=== PATIENT | female | born 1990 | race Two or more races ===

== ENCOUNTER 2019-07-23 12:28 | Inpatient (IN) | payer SELFPAY ==
[~2019-07-23] VITALS: Ht 167.6 cm; Wt 78.7 kg
[2019-07-23 14:09] LABS: Basophils # (auto) 0 uL; Eosinophils # (auto) 0 uL; Eosinophils % (auto) 0.2 % (0.0-7.0); Lymphocytes # (auto) 0.9 uL; Monocytes # (auto) 0.5 uL; Neutrophils # (auto) 7.4 uL
[2019-07-23 14:11] LABS: Basophils % (auto) 0.2 % (0.0-2.0); Hematocrit 33.5 % (36.0-46.0); Hemoglobin 10.9 g/dL (12.2-16.2); Lymphocytes % (auto) 9.8 % (10.0-50.0); Mean Corpuscular Hemoglobin 24.6 pg (28.0-32.0); Mean Corpuscular Hgb Conc. 32.4 g/dL (32.0-36.0); Mean Corpuscular Volume 75.9 fL (80.0-100.0); Monocytes % (auto) 6.1 % (0.0-12.0); Neutrophils % (auto) 83.7 % (37.0-80.0); Platelet Count (auto) 304 10^3/uL (140-450); Red Blood Cells 4.42 10^6/uL (4.0-5.20); Red Cell Distribution Width 16.7 % (11.8-14.3); White Blood Cell 8.8 10^3/uL (4.4-10.8)
[2019-07-23 14:25] LABS: Urine Bacteria NONE SEEN /hpf (None Seen); Urine Blood Negative /uL (Negative); Urine Mucus FEW (None Seen); Urine WBC 70 /hpf (0 - 5)
[2019-07-23 14:26] LABS: BUN/Creatinine Ratio 18.3; Calcium 8.6 mg/dL (8.5-10.1); Potassium 3.6 mmol/L (3.5-5.1)
[2019-07-23 14:28] LABS: Bilirubin, Total 0.7 mg/dL (0.2-1.0); Total Protein 7.7 g/dL (6.4-8.2)
[2019-07-23] MEDS ORDERED: ONDANSETRON HCL 4 MG/2 ML VIAL IV ONE (14:45)
[2019-07-23] MEDS ORDERED: MORPHINE SULFATE 4 MG/ML SYR/VIAL IV ONE (14:45)
[2019-07-23] MEDS ORDERED: SODIUM CHLORIDE 0.9% 1,000 ML IV ONE (14:45)
[2019-07-23] MEDS ORDERED: PIPERACILLIN-TAZOB 3.375GM 100 ML IV ONE (15:00)
[2019-07-23] MEDS ORDERED: MORPHINE SULFATE 4 MG/ML SYR/VIAL IV PRN (15:45)
[2019-07-23] MEDS: SODIUM CHLORIDE 0.9% 1,000 ML IV SCH ×2 (15:57→18:14)
[2019-07-23] MEDS ORDERED: cefTRIAXone 1GM/50ML D5W 50 ML IV ONE (16:00)
[2019-07-23] MEDS: FAMOTIDINE (10MG/ML) 2ML VL IV SCH ×2 (16:10→20:21)
[2019-07-23 17:00] VITALS: BP 107/70
[2019-07-23 17:24] VITALS: BP 107/70
[2019-07-23] MEDS: MORPHINE SULFATE 4 MG/ML SYR/VIAL IV PRN ×2 (18:06→22:27)
[2019-07-23] MEDS: PROMETHAZINE HCL 25 MG/ML 1ML IV PRN (20:21)
[2019-07-23] MEDS: metroNIDAZOLE 500MG/100ML 100 ML IV SCH (20:21)
[2019-07-23 22:00] VITALS: BP 111/66
[2019-07-24 05:00] VITALS: BP 102/72
[2019-07-24] MEDS: SODIUM CHLORIDE 0.9% 1,000 ML IV SCH ×2 (05:39→21:31)
[2019-07-24] MEDS: metroNIDAZOLE 500MG/100ML 100 ML IV SCH (05:39)
[2019-07-24] MEDS ORDERED: LIDOCAINE 2%HCL (LOCAL ANESTH.) INJ 20ML MDV ONE (07:11)
[2019-07-24 07:38] LABS: Eosinophils # (auto) 0 uL; Hematocrit 32.7 % (36.0-46.0); Hemoglobin 10.5 g/dL (12.2-16.2); Red Cell Distribution Width 16.5 % (11.8-14.3)
[2019-07-24 07:42] LABS: Basophils # (auto) 0 uL; Basophils % (auto) 0.3 % (0.0-2.0); Eosinophils % (auto) 0.5 % (0.0-7.0); Lymphocytes # (auto) 1.1 uL; Mean Corpuscular Hemoglobin 24.1 pg (28.0-32.0); Mean Corpuscular Volume 75.3 fL (80.0-100.0); Monocytes % (auto) 11.2 % (0.0-12.0); Neutrophils # (auto) 6.5 uL; Platelet Count (auto) 294 10^3/uL (140-450); Red Blood Cells 4.35 10^6/uL (4.0-5.20); White Blood Cell 8.6 10^3/uL (4.4-10.8)
[2019-07-24 07:57] LABS: Albumin 3.4 g/dL (3.4-5.0); BUN/Creatinine Ratio 14.5; Calcium 8.6 mg/dL (8.5-10.1); Potassium 3.7 mmol/L (3.5-5.1)
[2019-07-24 08:00] LABS: Total Protein 6.9 g/dL (6.4-8.2)
[2019-07-24 08:09] VITALS: BP 102/68
[2019-07-24 09:00] VITALS: BP 102/68
[2019-07-24] MEDS ORDERED: cefTRIAXone 1GM/50ML D5W 50 ML IV SCH (09:00)
[2019-07-24] MEDS: ENOXAPARIN SOD 40 MG/0.4 ML SYRINGE SC SCH (09:06)
[2019-07-24 10:23] LABS: INR 1.06 (0.9-1.15)
[2019-07-24 13:00] VITALS: BP 104/67
[2019-07-24] MEDS: PIPERACILLIN-TAZOB 3.375GM 100 ML IV SCH ×3 (13:04→23:40)
--- NOTE | 2019-07-24 13:30 | NUR ---
DR. ESCALERA ADVISED ME TO REFER PATIENT TO THE [facility] FOR A ERCP. DR. ESCALERA IS REFERING THE PATIENT FOR A CVD STONE
[2019-07-24 17:00] VITALS: BP 105/70
[2019-07-24] MEDS: FAMOTIDINE (10MG/ML) 2ML VL IV SCH (17:31)
--- NOTE | 2019-07-24 20:00 | NUR ---
INFORMED PATIENT AND FAMILY PLAN OF CARE, AND THAT SHE HAS SURGICAL AND GI CONSULT AND STUDY MRCP. PATIENT AND MOTHER VERBALIZES UNDERSTANDING NO QUESTIONS ASKED.
[2019-07-24 22:00] VITALS: BP 118/67
[2019-07-25] MEDS: FAMOTIDINE (10MG/ML) 2ML VL IV SCH ×2 (03:31→17:51)
--- NOTE | 2019-07-25 03:43 | NUR ---
PAIN/NAUSEA PATIENT C/O 8/10 ABDOMINAL PAIN AND NAUSEA REQUESTING MEDICATIONS. ADMINISTERED MORPHINE 2MG IV AND PHENERGAN 12.5MG IV PRESCRIBED. WILL CONTINUE TO MONTIOR PATIENT.
[2019-07-25] MEDS: MORPHINE SULFATE 4 MG/ML SYR/VIAL IV PRN ×2 (03:45→23:44)
[2019-07-25] MEDS: PROMETHAZINE HCL 25 MG/ML 1ML IV PRN ×2 (03:46→23:44)
[2019-07-25] MEDS: PIPERACILLIN-TAZOB 3.375GM 100 ML IV SCH ×4 (05:45→23:30)
--- NOTE | 2019-07-25 06:08 | NUR ---
PATIENT EDUCATION PRINTED WRITTEN INSTRUCTIONS REGARDING ERCP GIVEN TO PATIENT WHEN SHES AWAKE. WILL CONTINUE TO MONITOR PATIENT.
[2019-07-25 06:11] VITALS: BP 100/56
[2019-07-25 08:00] VITALS: BP 97/53
[2019-07-25 09:00] VITALS: BP 97/53
[2019-07-25] MEDS: ENOXAPARIN SOD 40 MG/0.4 ML SYRINGE SC SCH (10:43)
[2019-07-25] MEDS: SODIUM CHLORIDE 0.9% 1,000 ML IV SCH ×2 (10:44→17:51)
[2019-07-25] MEDS ORDERED: IOHEXOL 300 MG/ML 100ML BOTTLE IJ ONE (11:18)
--- NOTE | 2019-07-25 11:43 | NUR ---
PATIENT TRANSPORTED TO SURGERY FOR ERCP. ALL CONSENTS SIGNED AND PREOP CHECKLIST STARTED.
[2019-07-25] MEDS ORDERED: MEPERIDINE HCL (25 MG/ML) 1ML VIAL ONE (12:04)
[2019-07-25] MEDS ORDERED: MIDAZOLAM HCL 1MG/1ML-2 ML VIAL ONE (12:05)
[2019-07-25] MEDS ORDERED: fentaNYL CITRATE 100 MCG/2 ML VL ONE (12:05)
[2019-07-25] MEDS ORDERED: PROPOFOL 10 MG/ML 20 ML IV ONE (12:23)
[2019-07-25] MEDS ORDERED: DexAMETHasone SOD PHOS 10MG/1ML VIAL INJ ONE (12:23)
[2019-07-25 13:00] VITALS: BP 97/57
[2019-07-25] MEDS ORDERED: HYDROmorphone HCL 2 MG/ML VL IV PRN (13:00)
[2019-07-25] MEDS ORDERED: METOCLOPRAMIDE HCL 5MG/ml INJ 2ml VIAL IV PRN (13:00)
[2019-07-25] MEDS ORDERED: KETOROLAC TROMETH 30 MG/ML 1ML VIAL IV ONE (13:00)
[2019-07-25] MEDS ORDERED: MORPHINE SULFATE 4 MG/ML SYR/VIAL IV PRN (13:00)
[2019-07-25] MEDS ORDERED: MIDAZOLAM HCL 1MG/1ML-2 ML VIAL IV PRN (13:00)
[2019-07-25] MEDS ORDERED: ONDANSETRON HCL 4 MG/2 ML VIAL IV PRN (13:00)
[2019-07-25] MEDS ORDERED: LABETALOL HCL 5 MG/ML 4ML SYRINGE IV PRN (13:00)
[2019-07-25] MEDS ORDERED: ePHEDrine SULFATE 50 MG/ML AMP IV PRN (13:00)
[2019-07-25 17:14] VITALS: BP 104/64
--- NOTE | 2019-07-25 18:43 | NUR ---
ERCP COMPLETED TODAY. PATIENT SCHEDULED TO HAVE LAPAROSCOPIC POSSIBLE OPEN CHOLECYSTECTOMY TOMORROW (07/26/19). ALL CONSENTS SIGNED. PATIENT NPO
[2019-07-25 21:00] VITALS: BP 98/59
--- NOTE | 2019-07-25 22:19 | NUR ---
PATIENT C/O NUMBNESS AND TINGLING TO RIGHT HAND, RIGHT ARM RADIATING TO RIGHT SIDE OF TORSO THEN RIGHT FOOT AND LEFT HAND ONLY. PATIENT HAS EQUAL DOLLYMAN TO BOTH HAND. PATIENT STATES IT IS HARD TO MOVE RIGHT ARM LIKE A HEAVY FEELING. PATIENT HAS NO FACIAL DROOP NOR ANY NUMBNESS OR TINGLING. PATIENT BS-102 VITALS 97.8 75 20 93/60 O2 SAT 97% ROOM AIR. PATIENT STATES HER MOM ONLY MEDICAL HISTORY IS ANEMIA DAD HAS NO HEALTH ISSUES, BUT NEITHER MOM OR DAD TAKE ANY PRESCRIBED MEDICATION. PAGED HOSPITALIST AWAITING FOR ORDERS.
[2019-07-26] MEDS: SODIUM CHLORIDE 0.9% 1,000 ML IV SCH ×2 (03:31→13:31)
[2019-07-26] MEDS: FAMOTIDINE (10MG/ML) 2ML VL IV SCH ×2 (03:45→18:16)
[2019-07-26 04:30] VITALS: BP 85/49
[2019-07-26] MEDS: PIPERACILLIN-TAZOB 3.375GM 100 ML IV SCH ×3 (05:09→18:16)
[2019-07-26] MEDS ORDERED: ceFAZolin 1GM/50ML 50 ML IV ONE (07:16)
[2019-07-26] MEDS ORDERED: POVIDONE IODINE 5% TOPICAL CREAM TOP ONE (07:24)
--- NOTE | 2019-07-26 07:50 | NUR ---
OPENING SHIFT NOTE ASSUMED CARE OF PATIENT. PATIENT NOT IN ROOM AT THIS TIME, PATIENT IN OR FOR LAP ABDIFATAH. AWAITING PATIENTS RETURN.
[2019-07-26] MEDS ORDERED: MEPERIDINE HCL (25 MG/ML) 1ML VIAL ONE (07:51)
[2019-07-26] MEDS ORDERED: MIDAZOLAM HCL 1MG/1ML-2 ML VIAL ONE (07:51)
[2019-07-26] MEDS ORDERED: fentaNYL CITRATE 100 MCG/2 ML VL ONE (07:51)
[2019-07-26] MEDS ORDERED: DexAMETHasone SOD PHOS 10MG/1ML VIAL INJ ONE (07:59)
[2019-07-26] MEDS ORDERED: PROPOFOL 10 MG/ML 20 ML IV ONE (07:59)
[2019-07-26] MEDS ORDERED: ROCURONIUM 10MG/ML 10ML VIAL IV ONE (08:13)
[2019-07-26] MEDS ORDERED: KETOROLAC TROMETH 60MG/2ML VIAL ONE (08:29)
[2019-07-26] MEDS ORDERED: ONDANSETRON HCL 4 MG/2 ML VIAL ONE (08:29)
[2019-07-26] MEDS ORDERED: GLYCOPYRROLATE 0.2 MG/ML 1ML VIAL ONE (08:54)
[2019-07-26] MEDS ORDERED: NEOSTIGMINE 1 MG/ML INJ (10mg/10ML VIAL) ONE (08:54)
--- NOTE | 2019-07-26 09:40 | NUR ---
RECEIVED REPORT RECEIVED REPORT FROM OR. PATIENT TO RETURN
[2019-07-26] MEDS: ENOXAPARIN SOD 40 MG/0.4 ML SYRINGE SC SCH (10:00)
--- NOTE | 2019-07-26 10:00 | NUR ---
PHYSICAL ASSESSMENT 0800 DOCUMENTED ALL ASSESSMENTS DUE 0800/0900 AFTER PATIENT RETURNED FROM OR AT 0950
[2019-07-26 13:00] VITALS: BP 89/61
--- NOTE | 2019-07-26 14:23 | NUR ---
NUTRITION ASSESSMENT NOTES Please refer to link notes of nutrition screen form filed under the intervention section of the plan of care for further details. Est. Needs: 1500 kcal to 1850 kcal (20-25 kcal/kgBW), 60 gms to 74 gms pro (0.8-1.0 gms/kgBW). Will continue to monitor pertinent labs and reassess nutrient need prn Thank you. Addendum: 07/26/19 at [address] Amended: Links added.
--- NOTE | 2019-07-26 17:00 | NUR ---
SANDY DRAIN EMPTIED SANDY DRAIN, NOTED 60ML OF DARK RED OUTPUT. DRAIN SQUEEZED AND RECAPPED FOR SUCTION. PATIENT TOLERATING WELL.
[2019-07-26 17:35] VITALS: BP 96/63
--- NOTE | 2019-07-26 19:27 | NUR ---
END OF SHIFT NOTE PATIENT RESTING COMFORTABLY IN BED AT THIS TIME NO S/S OF DISTRESS OR SOB NOTED. BED IN LOWEST LOCKED POSITION, CALL LIGHT WITHIN REACH. CARE ENDORSED TO NOC RN.
[2019-07-26 21:00] VITALS: BP_SYST 111; BP_SYST 89; BP_DIAS 42; BP_DIAS 56
--- NOTE | 2019-07-26 22:30 | NUR ---
pt bp now 86/52. repaged hospitalistalex. awaiting call back
--- NOTE | 2019-07-26 22:32 | NUR ---
talked to hospitalistalex. new orders.
[2019-07-26] MEDS ORDERED: SODIUM CHLORIDE 0.9% 1,000 ML IV ONE (23:00)
--- NOTE | 2019-07-26 23:45 | NUR ---
PT BP NOW 94/51
[2019-07-27] MEDS: PIPERACILLIN-TAZOB 3.375GM 100 ML IV SCH ×4 (00:11→18:43)
[2019-07-27] MEDS: SODIUM CHLORIDE 0.9% 1,000 ML IV SCH ×3 (01:35→19:37)
[2019-07-27] MEDS: FAMOTIDINE (10MG/ML) 2ML VL IV SCH ×2 (03:39→18:44)
[2019-07-27 04:30] VITALS: BP 91/55
[2019-07-27 09:00] VITALS: BP 90/52
[2019-07-27] MEDS: MORPHINE SULFATE 4 MG/ML SYR/VIAL IV PRN ×2 (09:09→22:56)
[2019-07-27 13:00] VITALS: BP_SYST 137; BP_SYST 96; BP_DIAS 100; BP_DIAS 58
[2019-07-27] MEDS: HYDROcodone-ACET 10/325MG TAB PO PRN (14:30)
[2019-07-27] MEDS: ENOXAPARIN SOD 40 MG/0.4 ML SYRINGE SC SCH (14:30)
[2019-07-27 16:58] VITALS: BP 93/61
--- NOTE | 2019-07-27 20:00 | NUR ---
Opening Shift Note Assumed care of patient, awake and alert. No S/S of distress/SOB or pain. Abdomen soft and non-distended. Bowel sounds hyperactive x 4 quadrants. 2X2s to left abdomen with dried serous-sanguineous drainage. SANDY drain to right lower abdomen with 5cc of Serous sanguineous drainage. Dressing changed to SANDY site. SANDY insertion site, clean and intact. Instructed on POC and to call for assist PRN, will continue to monitor for changes Q1hr and PRN. Family at bedside. Bed in low position call light in reach.
[2019-07-27 22:00] VITALS: BP 87/58
[2019-07-27] MEDS: PROMETHAZINE HCL 25 MG/ML 1ML IV PRN (22:55)
[2019-07-28] MEDS: PIPERACILLIN-TAZOB 3.375GM 100 ML IV SCH ×3 (00:06→12:25)
[2019-07-28] MEDS: FAMOTIDINE (10MG/ML) 2ML VL IV SCH ×2 (03:22→16:08)
[2019-07-28 05:32] VITALS: BP 89/50
[2019-07-28] MEDS: SODIUM CHLORIDE 0.9% 1,000 ML IV SCH (05:54)
[2019-07-28 09:00] VITALS: BP 96/53
[2019-07-28] MEDS: ENOXAPARIN SOD 40 MG/0.4 ML SYRINGE SC SCH (10:56)
[2019-07-28] MEDS: HYDROcodone-ACET 10/325MG TAB PO PRN ×2 (10:56→16:08)
[2019-07-28 13:00] VITALS: BP 95/60
[2019-07-28 15:27] VITALS: BP 102/62
--- NOTE | 2019-07-28 17:00 | NUR ---
Discharge instructions given as ordered. Teaching reinforced regarding post surgical SANDY drain care. Pt and family verbalized understanding. Drsg changed to abd surgical puncture sites. Kory intact. No redness, drainage or swelling. All questions and concerns addressed. Patient verbalized understanding. Medication reconciliation form completed and copy given to patient. IV removed with catheter intact, pressure dressing applied. Patient taken to vehicle via wheelchair with all personal belongings, accompanied by staff and family member. No distress noted at time of departure.
== END 2019-07-28 17:00 | disposition home or self-care (01) | DRG 418 ==
LOC: ER 12:28 → OVERFLOW 12:29 → WEST WING 17:03
PROVIDERS: ADMIT Internal Medicine; ATTEND Internal Medicine
PROC: 0FC98ZZ Extirpation of Matter from Common Bile Duct, Via Natural or Artificial Opening Endoscopic (ICD-10-PCS; 2019-07-25)
PROC: BF101ZZ Fluoroscopy of Bile Ducts using Low Osmolar Contrast (ICD-10-PCS; 2019-07-25)
PROC: 0FT44ZZ Resection of Gallbladder, Percutaneous Endoscopic Approach (ICD-10-PCS; principal; 2019-07-26 07:45)
DX: K80.66 Calculus of gallbladder and bile duct with acute and chronic cholecystitis without obstruction (principal); N39.0 Urinary tract infection, site not specified; E66.01 Morbid (severe) obesity due to excess calories; Z68.28 Body mass index [BMI] 28.0-28.9, adult; K82.8 Other specified diseases of gallbladder; N27.0 Small kidney, unilateral
CPT/HCPCS: 36415; 71045; 74018; 74181; 76000; 76705; 80053; 81001; 81025; 82150; 82247; 82962; 83605; 83690; 85025; 85610; 85730; 86850; 86900; 86901; 87040; 87086; G0378; J0690; J0696; J1100; J1885; J2250; J2405; J2543; J2704; J3490